=== PATIENT | female | born 1955 | race Caucasian/White ===

== ENCOUNTER 2017-06-18 11:31 | Emergency (ER) | payer OTHER ==
[2017-06-18 13:00] LABS: BILIRUBIN,URINE NEGATIVE (NEGATIVE); GLUCOSE, URINE (UA) NEGATIVE (NEGATIVE); KETONES,URINE (UA) NEGATIVE (NEGATIVE); LEUKOCYTE ESTERASE, URINE MODERATE (NEGATIVE); NITRITE,URINE POSITIVE (NEGATIVE); OCCULT BLOOD,URINE MODERATE (NEGATIVE); PROTEIN,URINE 30 mg/dL (NEGATIVE); UROBILINOGEN,URINE 0.2 (NORMAL) E.U./dL (NORMAL)
[2017-06-18 13:01] LABS: HCG UR QUAL NEGATIVE
[2017-06-18 13:02] LABS: CLARITY,URINE SL. CLOUDY (CLEAR)
[2017-06-18 13:06] LABS: BACTERIA,URINE Moderate /HPF (None Seen); SQUAMOUS EPITHELIAL CELL,UR RARE Squamous (<= Few)
[2017-06-18] MEDS ORDERED: LIDOCAINE 1% 2 ML VIAL SUBQ ONE (13:15)
[2017-06-18] MEDS ORDERED: ACETAMINOPHEN 325 MG TABLET PO STA (13:15)
[2017-06-18] MEDS ORDERED: cefTRIAXone 1 GM VIAL IM STA (13:15)
--- NOTE | 2017-06-18 13:40 | ED Physician Documentation ---
History of Present Illness - Stated complaint Stated Complaint: FEMALE - Chief complaint Chief Complaint: General - Additonal information Additional information: hx from pt 61 f dysuria for about five days fever chills as well no flank or abd pain no NV normally very healthy Review of Systems Constitutional: reports: Fever, Chills Cardiac: denies: Chest pain / pressure GI: denies: Abdominal Pain : reports: Dysuria Musculoskeletal: denies: Back pain Immunocompromised: denies: Immunocompromised PD PAST MEDICAL HISTORY - Past Medical History Past Medical History: No - Past Surgical History Past Surgical History: Yes /[employer]: Tubal ligation - Present Medications Home Medications: Ambulatory Orders Medication Instructions Recorded Confirmed Cephalexin [Keflex] 500 mg PO Q6H #28 capsule 06/18/17 Phenazopyridine [Pyridium] 100 mg PO Q8H PRN #9 tablet 06/18/17 - Allergies Allergies/Adverse Reactions: Allergies Allergy/AdvReac Type Severity Reaction Status Date / Time No Known Drug Allergies Allergy Verified 06/18/17 11:37 - Social History Does the pt smoke?: No Smoking Status: Never smoker Does the pt drink ETOH?: No Does the pt have substance abuse?: No - Immunizations Immunizations are current?: Yes - POLST Patient has POLST: No PD ED PE NORMAL - Vitals Vital signs reviewed: Yes (rigors but afebrile) - General General: Alert and oriented X 3 - Cardiac Cardiac: RRR - Respiratory Respiratory: No respiratory distress - Abdomen Abdomen: Soft, Non tender - Back Back: No CVA TTP - Derm Derm: Normal color Results - Vitals Vitals: Vital Signs - 24 hr 06/18/17 06/18/17 11:34 13:29 Temperature 36.5 C Heart Rate 80 108 H Respiratory 16 20 Rate Blood Pressure 114/63 O2 Saturation 99 100 Oxygen O2 Source Room air - Labs Labs: Laboratory Tests 06/18/17 06/18/17 12:10 12:10 Urine Color YELLOW Urine Clarity SL. CLOUDY Urine pH 6.0 Ur Specific [place] 1.010 1.010 Urine Protein 30 H Urine Glucose (UA) NEGATIVE Urine Ketones NEGATIVE Urine Occult Blood MODERATE H Urine Nitrite POSITIVE H Urine Bilirubin NEGATIVE Urine Urobilinogen 0.2 (NORMAL) Ur Leukocyte Esterase MODERATE H Urine RBC 6-10 H Urine WBC >25 H Ur Squamous Epith Cells RARE Squamous Urine Bacteria Moderate H Ur Microscopic Review INDICATED Urine Culture Comments INDICATED Urine HCG, Qual NEGATIVE PD MEDICAL DECISION MAKING - ED course ED course: UTI with rigors afebrile, a bit tachy no CVA TTP to suggest pyelo no flank pain to suggest stone complicating infection no abd pain to suggest other abd process UA is + gave rocephin in ED and will dc on keflex pending cx results Departure - Departure Disposition: 01 Home, Self Care Clinical Impression: UTI (urinary tract infection) Qualifiers: Urinary tract infection type: site unspecified Hematuria presence: with hematuria Qualified Code(s): N39.0 - Urinary tract infection, site not specified ; R31.9 - Hematuria, unspecified; R31.9 - Hematuria, unspecified Condition: Good Instructions: ED UTI Cystitis Female Prescriptions: Cephalexin [Keflex] 500 mg PO Q6H #28 capsule Phenazopyridine [Pyridium] 100 mg PO Q8H PRN #9 tablet PRN Reason: painful urination Comments: You have a severe urine infection. It does not seem to have spread to your kidneys but you are having chills and your heart rate was a bit elevated. You are otherwise very healthy and so I think it is safe for you to go home after the antibiotic shot in the ER. Please take the antibiotics as prescribed Take tylenol and motrin as needed for pain and fever Drink plenty of fluids Please come back to the ER if worse in any way. A urine culture will be run and the ER staff will call you if the culture results indicate a need to change antibiotics. As long as you are improving, please follow up with your PMD in a week for a repeat urine to be sure the infection and traces of blood in the urine have cleared out
[2017-06-18] MEDS ORDERED: ONDANSETRON ODT 4 MG TABLET TL STA (13:50)
[2017-06-18] MEDS ORDERED: SODIUM CHLORIDE 0.9% 2,000 ML IV ONE (14:01)
[2017-06-18] MEDS ORDERED: KETOROLAC 60 MG/2 ML VIAL IVP STA (14:01)
[2017-06-18] MEDS ORDERED: ONDANSETRON 4 MG/2 ML VIAL IVP STA (14:01)
[2017-06-18 14:23] LABS: BASOPHILS % (AUTO) 0.3 %; EOSINOPHILS % (AUTO) 0.3 %; HGB - HEMOGLOBIN 12.9 g/dL (12.0-16.0); LYMPHOCYTES # (AUTO) 0.5 10^3/uL (1.5-3.5); LYMPHOCYTES % (AUTO) 10.2 %; MEAN CORPUSCULAR HEMOGLOBIN 30.6 pg (27.0-31.0); MEAN CORPUSCULAR HGB CONC 34.3 g/dL (32.0-36.0); MEAN CORPUSCULAR VOLUME 89.2 fL (81.0-99.0); MEAN PLATELET VOLUME 8.9 fL (7.9-10.8); MONOCYTES # (AUTO) 0.1 10^3/uL (0.0-1.0); MONOCYTES % (AUTO) 2.1 %; NEUTROPHILS # (AUTO) 4.2 10^3/uL (1.5-6.6); NEUTROPHILS % (AUTO) 87.1 %; PLT - PLATELET COUNT 140 10^3/uL (130-450); RED BLOOD COUNT 4.24 10^6/uL (4.20-5.40); RED CELL DISTRIBUTION WIDTH 13.4 % (12.0-15.0); WHITE BLOOD COUNT 4.8 x10^3/uL (4.8-10.8)
[2017-06-18 15:54] VITALS: BP 106/56
== END 2017-06-18 16:32 | disposition home or self-care (01) ==
LOC: ED 11:31
DX: N39.0 Urinary tract infection, site not specified (principal); R31.9 Hematuria, unspecified
CPT/HCPCS: 36415; 80048; 81001; 81025; 83605; 85025; 87040; 87086; 96361; 96372; 96374; 96375; 99283; A9270; Q0162; 81003

== ENCOUNTER 2017-06-20 07:54 | Emergency (ER) | payer OTHER ==
--- NOTE | 2017-06-20 08:34 | ED Physician Documentation ---
History of Present Illness - Stated complaint Stated Complaint: FEMALE - Chief complaint Chief Complaint: General - Additonal information Additional information: hx from pt 61 female seen by me 2 days ago - had a UTI - no CVA pain - but with fever and rigors and vomiting got IVF toradol rocpehin zofran in the ED and dc on kefelx pt visiting locally and had no PMD for fup and so I asked her to come back and see me for a recheck in the intervening 48 hr her urine cx was + for E coli sensitive to rocephin and keflex and her blood cx were neg pt states she is doing better had fevers rigors still ysterday but better today achey all over but no focal CAV TTP she is however having sig difficulty emptying her bladder - despite pyridium is having hesitancy and inability to void Review of Systems Constitutional: reports: Fever, Chills, Myalgias Cardiac: denies: Chest pain / pressure GI: denies: Abdominal Pain : reports: Hesitancy Musculoskeletal: denies: Back pain PD PAST MEDICAL HISTORY - Past Surgical History Past Surgical History: Yes /[employer]: Tubal ligation - Present Medications Home Medications: Ambulatory Orders Medication Instructions Recorded Confirmed Cephalexin [Keflex] 500 mg PO Q6H #28 capsule 06/18/17 Phenazopyridine [Pyridium] 100 mg PO Q8H PRN #9 tablet 06/18/17 Tamsulosin [Flomax] 0.4 mg PO DAILY PRN #5 capsule 06/20/17 - Allergies Allergies/Adverse Reactions: Allergies Allergy/AdvReac Type Severity Reaction Status Date / Time No Known Drug Allergies Allergy Verified 06/20/17 08:10 - Social History Does the pt smoke?: No Smoking Status: Never smoker Does the pt drink ETOH?: No Does the pt have substance abuse?: No - Immunizations Immunizations are current?: Yes - POLST Patient has POLST: No PD ED PE NORMAL - Vitals Vital signs reviewed: Yes - General General: Alert and oriented X 3 (looks much better than 2 days ago) - Cardiac Cardiac: RRR - Respiratory Respiratory: No respiratory distress - Abdomen Abdomen: Soft, Other (mild suprapubic TTP) - Back Back: No CVA TTP - Extremities Extremities: Normal ROM s pain - Neuro Neuro: Alert and oriented X 3 Results - Vitals Vitals: Vital Signs - 24 hr 06/20/17 08:05 Temperature 37 C Heart Rate 69 Respiratory 15 Rate Blood Pressure 121/66 O2 Saturation 98 Oxygen O2 Source Room air - Labs Labs: Laboratory Tests 06/20/17 09:00 Urine Color YELLOW Urine Clarity CLEAR Urine pH 5.0 Ur Specific [place] <=1.005 Urine Protein NEGATIVE Urine Glucose (UA) NEGATIVE Urine Ketones NEGATIVE Urine Occult Blood TRACE-LYSE Urine Nitrite NEGATIVE Urine Bilirubin NEGATIVE Urine Urobilinogen 0.2 (NORMAL) Ur Leukocyte Esterase TRACE H Urine RBC 0-5 Urine WBC 6-10 H Ur Squamous Epith Cells RARE Squamous Urine Bacteria Rare Ur Microscopic Review INDICATED Urine Culture Comments INDICATED PD MEDICAL DECISION MAKING - ED course ED course: pt had sig urinary retention given flomax with good releif, just of 200 residual now pt does state she has a long standing hx of difficulty urinating and emptying her bladder in public places so not necessarily related to the infection Departure - Departure Disposition: 01 Home, Self Care Clinical Impression: Urinary retention UTI (urinary tract infection) Qualifiers: Urinary tract infection type: site unspecified Hematuria presence: without hematuria Qualified Code(s): N39.0 - Urinary tract infection, site not specified Condition: Good Instructions: ED UTI Cystitis Female Prescriptions: Tamsulosin [Flomax] 0.4 mg PO DAILY PRN #5 capsule PRN Reason: urine retention Comments: Please see your PMD when you get home and have him/her check that you are able to fully empty your bladder once the infection has passed - if not you may need a referral to urology for further evaluation
[2017-06-20] MEDS ORDERED: TAMSULOSIN 0.4 MG CAPSULE PO STA (09:11)
[2017-06-20 09:35] LABS: BILIRUBIN,URINE NEGATIVE (NEGATIVE); GLUCOSE, URINE (UA) NEGATIVE (NEGATIVE); KETONES,URINE (UA) NEGATIVE (NEGATIVE); LEUKOCYTE ESTERASE, URINE TRACE (NEGATIVE); NITRITE,URINE NEGATIVE (NEGATIVE); OCCULT BLOOD,URINE TRACE-LYSE (NEGATIVE); PROTEIN,URINE NEGATIVE (NEGATIVE); UROBILINOGEN,URINE 0.2 (NORMAL) E.U./dL (NORMAL)
[2017-06-20 09:45] LABS: CLARITY,URINE CLEAR (CLEAR)
[2017-06-20 09:46] LABS: BACTERIA,URINE Rare /HPF (None Seen); RBC,URINE 0-5 /HPF (0-5); SQUAMOUS EPITHELIAL CELL,UR RARE Squamous (<= Few)
[2017-06-20 10:45] VITALS: BP 115/74
== END 2017-06-20 10:45 | disposition home or self-care (01) ==
LOC: ED 07:54
DX: N39.0 Urinary tract infection, site not specified (principal); R33.9 Retention of urine, unspecified
CPT/HCPCS: 51798; 81001; 87086; 99283; A9270; 81003